=== PATIENT | female | born 1940 | race Caucasian/White ===

== ENCOUNTER → 2021-06-06 | Outpatient (CLI) | payer MEDICARE, BC ==
--- NOTE | 2021-06-06 16:42 | MR ---
EXAMINATION TYPE: MR knee RT wo/w con DATE OF EXAM: 06/06/2021 COMPARISON: None HISTORY: Pain in right knee TECHNIQUE: Multiplanar, multisequence images of the knee is performed without and with 7 mL intraveno us Gadavist gadolinium contrast. FINDINGS: MEDIAL MENISCUS: Linear increased signal present within the posterior horn of the medial meniscus ext ends to the articular surface on sagittal image #12 series 601 suggesting an undersurface tear. Some diffuse intrasubstance signal is present LATERAL MENISCUS: There is some intrasubstance signal without extension to the articular surface CRUCIATE LIGAMENTS: The anterior and posterior cruciate ligaments are intact and unremarkable. COLLATERAL LIGAMENTS: The medial collateral ligament and lateral collateral ligament complex are inta ct and unremarkable. EXTENSOR MECHANISM: Visualized quadriceps and patellar tendons are intact. 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 Lateral femoral condyle farooq ws at its medial surface some probable grade 3 to grade IV chondromalacia anteriorly BONE MARROW SIGNAL: Some reactive marrow signal change present at the posterior patella, there may be some small geodes. There is subchondral signal change involving the lateral femoral condyle anterior ly, coronal image #12 of series 901, sagittal image 21 OTHER: There is subcutaneous edema change. Along the medial rectus femoris musculature and also late rally, axial image 30. Some fluid signal present along the posterior distal femur at the level of the lateral femoral condyle could represent small ganglion measuring 1 cm. IMPRESSION: Difficult to exclude infection involving the semimembranosus gastrocnemius cyst, findings could be du e to to synovial inflammatory change. Osteoarthritis. There may be a small undersurface tear joint an d medial meniscus. Osteochondral injury may be present in the medial aspect of lateral femoral condyl e.
== END | disposition home or self-care (01) ==
LOC: RADMRIMAIN 13:06
PROVIDERS: ATTEND Family Medicine
DX: M17.11 Unilateral primary osteoarthritis, right knee (principal)
CPT/HCPCS: 73723; A9585